=== PATIENT | male | born 1960 | race Caucasian/White ===

== ENCOUNTER → 2018-09-17 | Emergency (ER) | payer OTHER | END | disposition left against medical advice (07) | LOC: ER 21:36 | DX: Z53.20 Procedure and treatment not carried out because of patient's decision for unspecified reasons (principal) ==

== ENCOUNTER 2021-02-10 04:53 | Emergency (ER) | payer OTHER ==
[~2021-02-10] VITALS: Ht 175.3 cm; Wt 80.7 kg
[2021-02-10] MEDS ORDERED: WARFARIN SODIUM1 GM (05:13)
== END 2021-02-10 06:21 | disposition home or self-care (01) ==
LOC: ER 04:53
DX: S63.292A Dislocation of distal interphalangeal joint of right middle finger, initial encounter (principal); X50.9XXA Other and unspecified overexertion or strenuous movements or postures, initial encounter; Y93.89 Activity, other specified; Y92.89 Other specified places as the place of occurrence of the external cause; Y99.8 Other external cause status

== ENCOUNTER 2024-10-25 17:01 | Emergency (ER) | payer OTHER ==
[~2024-10-25] VITALS: Ht 175.3 cm; Wt 81.6 kg
[~2024-10-25 17:01] MED LIST: WARFARIN SODIUM1 GM
[2024-10-25] MEDS ORDERED: EZALLOR SPRINKLE5 MG (17:05)
[2024-10-25] MEDS ORDERED: TETANUS & DIPHTHERIA TOX,ADULT 0.5 ML VIAL IM STA (17:52)
[2024-10-25] MEDS ORDERED: CEFTRIAXONE SODIUM 1,000 MG VIAL IM STA (17:53)
[2024-10-25] MEDS ORDERED: CEFTRIAXONE SODIUM 1,000 MG VIAL ONE (18:13)
[2024-10-25] MEDS ORDERED: DIPHTH,PERTUSS(ACELL),TET VAC 0.5 ML SYRINGE IM ONE (18:14)
[2024-10-25 21:22] VITALS: BP 120/80; O2SAT 100
== END 2024-10-25 21:24 | disposition home or self-care (01) ==
LOC: ER 17:01
DX: M25.562 Pain in left knee (principal); Z95.1 Presence of aortocoronary bypass graft; S80.812A Abrasion, left lower leg, initial encounter; S80.811A Abrasion, right lower leg, initial encounter; W18.39XA Other fall on same level, initial encounter; Y93.89 Activity, other specified; Y92.832 Beach as the place of occurrence of the external cause